=== PATIENT | female | born 1955 | race Caucasian/White ===

== ENCOUNTER 2017-11-20 13:38 | Emergency (ER) | payer MEDICARE, MEDICAID ==
[~2017-11-20] VITALS: Ht 177.8 cm; Wt 136.4 kg
[~2017-11-20 13:38] MED LIST: IBUP-1984 PO
[2017-11-20 14:51] LABS: BASOPHILS % (AUTO) 0.3 % (0-1); EOSINOPHILS # (AUTO) 0.1 X10'3 (0-0.9); EOSINOPHILS % (AUTO) 1.3 % (0-6); HEMATOCRIT 48.4 % (35.0-45.0); HEMOGLOBIN 16.2 g/dl (12.0-16.0); LYMPHOCYTES # (AUTO) 0.6 X10'3 (1.1-4.8); LYMPHOCYTES % (AUTO) 8.7 % (21-51); MEAN CORPUSCULAR HEMOGLOBIN 31.8 PG (27.0-31.0); MEAN CORPUSCULAR HGB CONC 33.4 % (33.0-36.5); MEAN CORPUSCULAR VOLUME 95.3 FL (78-98); MEAN PLATELET VOLUME 7.6 FL (7.4-10.4); MONOCYTES # (AUTO) 0.5 X10'3 (0-0.9); MONOCYTES % (AUTO) 7.9 % (2-12); NEUTROPHILS # (AUTO) 5.5 X10'3 (1.8-7.7); NEUTROPHILS % (AUTO) 81.8 % (42-75); PLATELET COUNT 158 X10'3 (140-440); RED BLOOD COUNT 5.08 X10'6 (4.20-5.60); RED CELL DISTRIBUTION WIDTH 16.4 % (11.5-14.5); WHITE BLOOD COUNT 6.8 X10'3 (4.5-11.0)
[2017-11-20 15:06] LABS: ALANINE AMINOTRANSFERASE 24 U/L (12-78); ALBUMIN 3.7 G/DL (3.4-5.0); ALBUMIN/GLOBULIN RATIO 0.8 (1.1-1.5); ALKALINE PHOSPHATASE 181 IU/L (46-116); ANION GAP 8 (8-16); ASPARTATE AMINO TRANSFERASE 26 U/L (10-37); BILIRUBIN,TOTAL 2.6 MG/DL (0.1-1.0); BLOOD UREA NITROGEN 7 MG/DL (7-18); BUN/CREATININE RATIO 12.1 (6.6-38.0); CALCIUM 8.9 MG/DL (8.5-10.1); CHLORIDE 102 MMOL/L (99-107); CREATININE 0.58 MG/DL (0.40-0.90); GLUCOSE 141 MG/DL (70-104); MAGNESIUM 1.7 MG/DL (1.5-2.4); SODIUM 140 MMOL/L (135-145); TOTAL PROTEIN 8.1 G/DL (6.4-8.2); eGFR > 90 ML/MIN
[2017-11-20 15:13] LABS: D-DIMER 3.72 MG/L FEU (0-0.50); INR 1.2 INR; PARTIAL THROMBOPLASTIN TIME 29 SECONDS (22-32); PROTHROMBIN TIME 12.7 SECONDS (9.0-12.0)
[2017-11-20] MEDS ORDERED: CefTRIAXone/D5W-Rocephin 1gm 50 ML IV ONE (15:50)
[2017-11-20] MEDS ORDERED: iohexol 350MG/ML 100ml bottle IV ONE (16:13)
[2017-11-20 16:24] LABS: CLARITY,URINE CLEAR (Clear); COLOR,URINE YELLOW (Yellow); GLUCOSE, URINE NEGATIVE (Neg); KETONES,URINE NEGATIVE (Neg); LEUKOCYTE ESTERASE ,URINE TRACE (Neg); NITRITES, URINE NEGATIVE (Neg); OCCULT BLOOD,URINE NEGATIVE (Neg); PROTEIN,URINE NEGATIVE (Neg)
[2017-11-20 16:30] LABS: UA COLLECTION TYPE CLN CATCH MIDSTREAM
[2017-11-20 16:31] LABS: BACTERIA,URINE FEW /HPF (Neg); RBC,URINE 0-2 /HPF (0-2); SQUAMOUS EPITHELIAL CELL,UR FEW /LPF (FEW); WBC,URINE 0-4 /HPF (0-4)
[2017-11-20 16:32] LABS: URINE HCG NEGATIVE (NEG)
[2017-11-20] MEDS ORDERED: ASPI-611 PO (18:03)
[2017-11-20] MEDS ORDERED: albuterol 2.5 MG/3 ML nebule NEB ONE (18:20)
[2017-11-20 18:31] VITALS: BP 135/81
[2017-11-20 18:50] LABS: ABG BASE EXCESS 4.4 mmol/L (-2.0-3.0); ABG HCO3 31.5 mmol/L (22.0-26.0); ABG OXYGEN SATURATION 89.1 % (95-98); ABG PCO2 (T) 53.7 mmHg (32.0-45.0); ABG PH (T) 7.383 (7.350-7.450); ABG PO2 (T) 51.5 mmHg (83-108); ALLEN'S TEST Positive; FCOHb 5.6 % (0.5-1.5); FMetHb 0.1 % (0.3-1.12); PATIENT TEMPERATURE 36.3; RESPIRATORY RATE (OBSERVED) 18 b/min; TOTAL HEMOGLOBIN 17.3 G/dl (12.0-16.0)
[2017-11-20] MEDS ORDERED: CEPH250T PO (18:55)
== END 2017-11-20 18:10 | disposition home or self-care (01) ==
LOC: ER 13:39
DX: L03.115 Cellulitis of right lower limb (principal); R09.02 Hypoxemia; Z87.442 Personal history of urinary calculi; Z98.890 Other specified postprocedural states; Z79.82 Long term (current) use of aspirin; Z79.899 Other long term (current) drug therapy
CPT/HCPCS: 36415; 36600; 71045; 71275; 80053; 81001; 81025; 82803; 83605; 83735; 83880; 84145; 85018; 85025; 85379; 85610; 85730; 87040; 87077; 87088; 87186; 93971; 94640; 94760; 96365; 99285; J0696; J7030; Q9967

== ENCOUNTER 2019-09-10 07:44 | Emergency (ER) | payer MEDICARE, MEDICAID ==
[~2019-09-10] VITALS: Ht 177.8 cm; Wt 125.3 kg
[~2019-09-10 07:44] MED LIST changes: +ASPI-611 PO; -IBUP-1984 PO
[2019-09-10] MEDS ORDERED: oxymetazoline 15 ML nasal spray NS ONE (08:10)
--- NOTE | 2019-09-10 08:22 | NUR ---
Nasal clamp placed after Afrin administered. No active bleeding noted when administering Afrin.
[2019-09-10 08:31] VITALS: BP 111/61
--- NOTE | 2019-09-10 09:00 | NUR ---
Removed nasal clamp to make sure there was no active bleeding. No active bleeding noted at this time.
[2019-09-12] MEDS ORDERED: RIVA20TA PO (15:54)
[2019-09-12] MEDS ORDERED: LISI-600 PO (15:54)
== END 2019-09-10 09:32 | disposition home or self-care (01) ==
LOC: ER 07:44
DX: R04.0 Epistaxis (principal); Z87.442 Personal history of urinary calculi; Z79.01 Long term (current) use of anticoagulants; Z98.890 Other specified postprocedural states; Z79.82 Long term (current) use of aspirin
CPT/HCPCS: 99284

== ENCOUNTER 2019-09-10 20:10 | Emergency (ER) | payer MEDICARE, MEDICAID ==
[~2019-09-10] VITALS: Ht 177.8 cm; Wt 125.0 kg
[2019-09-10] MEDS ORDERED: tranexamic acid 100mg/ml inj. TP ONE (20:35)
--- NOTE | 2019-09-10 21:02 | NUR ---
TRACIE Gonsalez at bedside performing procedure at this time.
[2019-09-10 21:20] LABS: BASOPHILS % (AUTO) 0.1 % (0-1); EOSINOPHILS % (AUTO) 0.4 % (0-6); HEMATOCRIT 47.1 % (35.0-45.0); HEMOGLOBIN 16.9 g/dl (12.0-16.0); LYMPHOCYTES # (AUTO) 0.7 X10'3 (1.1-4.8); LYMPHOCYTES % (AUTO) 9.8 % (21-51); MEAN CORPUSCULAR HEMOGLOBIN 35.2 PG (27.0-31.0); MEAN CORPUSCULAR HGB CONC 35.8 g/dL (33.0-36.5); MEAN CORPUSCULAR VOLUME 98.2 FL (78-98); MEAN PLATELET VOLUME 7.4 FL (7.4-10.4); MONOCYTES # (AUTO) 0.6 X10'3 (0-0.9); MONOCYTES % (AUTO) 7.8 % (2-12); NEUTROPHILS # (AUTO) 6.1 X10'3 (1.8-7.7); NEUTROPHILS % (AUTO) 81.9 % (42-75); PLATELET COUNT 171 X10'3 (140-440); RED BLOOD COUNT 4.79 X10'6 (4.20-5.60); RED CELL DISTRIBUTION WIDTH 13.2 % (11.5-14.5); WHITE BLOOD COUNT 7.4 X10'3 (4.5-11.0)
[2019-09-10 21:57] VITALS: BP 130/92
[2019-09-12] MEDS ORDERED: LISI-600 PO (15:54)
[2019-09-12] MEDS ORDERED: RIVA20TA PO (15:54)
[2019-09-15] MEDS ORDERED: AMOX500C2 PO (12:00)
[2019-09-15] MEDS ORDERED: HYDR-4383 PO (12:00)
== END 2019-09-10 22:05 | disposition home or self-care (01) ==
LOC: ER 20:10
DX: R04.0 Epistaxis (principal); E07.9 Disorder of thyroid, unspecified; Z98.890 Other specified postprocedural states; Z72.89 Other problems related to lifestyle; Z79.82 Long term (current) use of aspirin
CPT/HCPCS: 36415; 85025; 85610; 99283

== ENCOUNTER 2022-09-16 15:19 | Emergency (ER) | payer MEDICARE, MEDICAID ==
[~2022-09-16] VITALS: Ht 180.3 cm; Wt 121.4 kg
[~2022-09-16 15:19] MED LIST changes: +HYDR-4383 PO; +RIVA20TA PO
[2022-09-16 19:41] LABS: BASOPHILS % (AUTO) 0.2 % (0-1); EOSINOPHILS # (AUTO) 0.1 X10'3 (0-0.9); EOSINOPHILS % (AUTO) 0.8 % (0-6); HEMATOCRIT 45.2 % (35.0-45.0); HEMOGLOBIN 15.7 g/dl (12.0-16.0); LYMPHOCYTES # (AUTO) 1.2 X10'3 (1.1-4.8); LYMPHOCYTES % (AUTO) 10.8 % (21-51); MEAN CORPUSCULAR HEMOGLOBIN 33.1 PG (27.0-31.0); MEAN CORPUSCULAR HGB CONC 34.8 g/dL (33.0-36.5); MEAN CORPUSCULAR VOLUME 95.2 FL (78-98); MEAN PLATELET VOLUME 7.6 FL (7.4-10.4); MONOCYTES % (AUTO) 8.8 % (2-12); NEUTROPHILS # (AUTO) 8.6 X10'3 (1.8-7.7); NEUTROPHILS % (AUTO) 79.4 % (42-75); PLATELET COUNT 231 X10'3 (140-440); RED BLOOD COUNT 4.75 X10'6 (4.20-5.60); WHITE BLOOD COUNT 10.8 X10'3 (4.5-11.0)
[2022-09-16 19:51] LABS: ALANINE AMINOTRANSFERASE 11 U/L (12-78); ALBUMIN 3.5 G/DL (3.4-5.0); ALBUMIN/GLOBULIN RATIO 0.7 (1.1-1.5); ALKALINE PHOSPHATASE 111 IU/L (46-116); ANION GAP 10 (8-16); ASPARTATE AMINO TRANSFERASE 25 U/L (10-37); BILIRUBIN,TOTAL 1.6 MG/DL (0.1-1.0); BLOOD UREA NITROGEN 8 MG/DL (7-18); CHLORIDE 98 MMOL/L (99-107); CREATININE 0.73 MG/DL (0.40-0.90); GLUCOSE 115 MG/DL (70-104); LIPASE 77 U/L (73-393); POTASSIUM 3.2 MMOL/L (3.5-5.1); SODIUM 137 MMOL/L (135-145); TOTAL CARBON DIOXIDE 29.2 MMOL/L (24-32); TOTAL PROTEIN 8.3 G/DL (6.4-8.2); eGFR 80 ML/MIN
[2022-09-16 20:55] VITALS: BP 149/98
[2022-09-16] MEDS ORDERED: normal saline 1000ML IV soln IVB ONE (21:55)
[2022-09-16] MEDS ORDERED: iohexol 300mg/ml 100ml inj. ONE (21:58)
[2022-09-16 23:00] LABS: CLARITY,URINE SLIGHTLY CLOUDY (Clear); COLOR,URINE YELLOW (Yellow); GLUCOSE, URINE NEGATIVE (Neg); KETONES,URINE 15 mg/dl (Neg); LEUKOCYTE ESTERASE ,URINE NEGATIVE (Neg); OCCULT BLOOD,URINE NEGATIVE (Neg); PH,URINE 6.5 (4.8-8.0); PROTEIN,URINE TRACE mg/dl (Neg)
[2022-09-16 23:05] LABS: NITRITES, URINE NEGATIVE (Neg); UA COLLECTION TYPE CLN CATCH MIDSTREAM
[2022-09-16 23:06] LABS: MUCUS STRANDS MANY /LPF (Neg); SQUAMOUS EPITHELIAL CELL,UR MANY /LPF (FEW)
[2022-09-16 23:07] LABS: BACTERIA,URINE FEW /HPF (Neg)
[2022-09-16] MEDS ORDERED: dicyclomine 10 MG capsule PO ONE (23:40)
[2022-09-16] MEDS ORDERED: DICY10CA88 PO (23:41)
--- NOTE | 2022-09-16 23:47 | NUR ---
IV DC'D PT BEING DISCHARGED. DRESSING APPLIED
--- NOTE | 2022-09-17 00:15 | NUR ---
Ladonna kim in [place] - 09/17/22 at 0241 by HECTOR IV DC'D PT BEING DISCHARGED DRESSING APPLIED
== END 2022-09-17 00:25 | disposition home or self-care (01) ==
LOC: ER 15:20
DX: K42.9 Umbilical hernia without obstruction or gangrene (principal); R10.12 Left upper quadrant pain; I10 Essential (primary) hypertension; F17.200 Nicotine dependence, unspecified, uncomplicated; Z87.442 Personal history of urinary calculi; Z79.899 Other long term (current) drug therapy; Z79.82 Long term (current) use of aspirin
CPT/HCPCS: 36415; 74177; 80053; 81001; 83690; 85025; 96360; 99285; J3490; J7030; Q9967